=== PATIENT | male | born 1965 | race Caucasian/White ===

== ENCOUNTER 2019-08-06 15:10 | Emergency (ER) | payer OTHER ==
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
[2019-08-06 16:53] VITALS: BP 122/72
== END 2019-08-06 17:25 | disposition home or self-care (01) ==
LOC: ER 15:10
DX: S16.1XXA Strain of muscle, fascia and tendon at neck level, initial encounter (principal); R51 Headache; R11.0 Nausea; V49.40XA Driver injured in collision with unspecified motor vehicles in traffic accident, initial encounter; I10 Essential (primary) hypertension
CPT/HCPCS: 72050; 99284